=== PATIENT | male | born 2000 | race Caucasian/White ===

== ENCOUNTER 2021-07-30 08:45 | Emergency (ER) | payer OTHER ==
[~2021-07-30] VITALS: Ht 175.3 cm; Wt 77.3 kg
[2021-07-30 08:45] VITALS: BP 141/74
[2021-07-30] MEDS ORDERED: IBUP-1022 PO (10:46)
== END 2021-07-30 10:58 | disposition home or self-care (01) ==
LOC: M ED 08:45
DX: S76.302A Unspecified injury of muscle, fascia and tendon of the posterior muscle group at thigh level, left thigh, initial encounter (principal); Z90.89 Acquired absence of other organs; Y92.9 Unspecified place or not applicable; Y93.02 Activity, running; Y99.1 Military activity